=== PATIENT | male | born 1985 | race Caucasian/White ===

== ENCOUNTER 2017-03-27 07:13 | Emergency (ER) | payer SELFPAY ==
[~2017-03-27] VITALS: Ht 162.6 cm; Wt 100.0 kg
[2017-03-27 07:14] VITALS: BP 140/88; PULSE 97; RESP 18; TEMP 99.5; O2SAT 97
--- NOTE | 2017-03-27 07:43 | PD ---
HPI Chief Complaint: Flank/Kidney Pain Time Seen by Provider: 07:43 Travel History International Travel<30 days: No Contact w/Intl Traveler<30days: No Traveled to known affect area: No History of Present Illness HPI 31-year-old male came to the emergency room with history of left groin pain radiating to the left upper quadrant and to the back. Patient says this is been going on for past 4-5 days. 2 days ago the pain was excruciating when he was vomiting. He tried to tough it out as per him but since the pain is not getting better he decided to come here. He describes the pain as constant pressure with occasional intermittent sharp squeezing pain in his left testicular area. 5 days ago he noticed that his urine was dark ela color and he thought it was probably from dehydration and has been drinking a a lot of fluid and Gatorade. He says the urine looks clearer now. No history of fever or chills. Patient has history of testicular torsion years ago. No surgery was done. No past history of renal calculus. [facility] Past Medical History Narrative Medical List of his past medical, surgical, social and family history is reviewed from the nursing note. Medical History: Denies Significant Hx Diminished Hearing: No Immunizations Current: No Tetanus Vaccination: Unknown Influenza Vaccination: No Past Surgical History Surgical History: No Previous Surgery Social History Alcohol Use: Yes (occ) Tobacco Use: Yes (vape) Substance Use: Yes (marijuana - last use 2 days ago ) Allergies-Medications (Allergen,Severity, Reaction): Coded Allergies: No Known Allergies (Unverified , 03/27/17) Comments No known drug allergies. Reported Meds & Prescriptions Reported Meds & Active Scripts Active Hydrocodone-Acetaminophen 5-325 mg Tab 1 Tab PO Q6H PRN Flomax (Tamsulosin HCl) 0.4 Mg Cap 0.4 Mg PO HS Narrative Medication List of his home medications reviewed from the nursing note. Review of Systems Except as stated in HPI: all other systems reviewed are Neg Genitourinary: Positive: Hematuria, Pelvic Pain Physical Exam Narrative GENERAL: Awake, alert, mild distress SKIN: Focused skin assessment warm/dry. HEAD: Atraumatic. Normocephalic. EYES: Pupils equal and round. No scleral icterus. No injection or drainage. ENT: No nasal bleeding or discharge. Mucous membranes pink and moist. NECK: Trachea midline. No JVD. CARDIOVASCULAR: Regular rate and rhythm. No murmur appreciated. RESPIRATORY: No accessory muscle use. Clear to auscultation. Breath sounds equal bilaterally. GASTROINTESTINAL: Abdomen soft, non-tender, nondistended. Hepatic and splenic margins not palpable. MUSCULOSKELETAL: No obvious deformities. No clubbing. No cyanosis. No edema. : Circumcised, both testicles descended, cremasteric reflex present on the left and right. NEUROLOGICAL: Awake and alert. No obvious cranial nerve deficits. Motor grossly within normal limits. Normal speech. PSYCHIATRIC: Appropriate mood and affect; insight and judgment normal. Data Data Last Documented VS Vital Signs Date Time Temp Pulse Resp B/P (MAP) Pulse Ox O2 Delivery O2 Flow Rate FiO2 03/27/17 10:39 76 20 141/63 (89) 98 03/27/17 07:14 99.5 Room Air Orders Orders Complete Blood Count With Diff (03/27/17 08:03) Basic Metabolic Panel (Bmp) (03/27/17 08:03) Urinalysis - C+S If Indicated (03/27/17 08:03) Ct Abd/Pel W/O Iv Contrast (03/27/17 08:03) Ecg Monitoring (03/27/17 08:03) Iv Access Insert/Monitor (03/27/17 08:03) Ketorolac Inj (Toradol Inj) (03/27/17 08:15) Sodium Chloride 0.9% Flush (Ns Flush) (03/27/17 08:15) Sodium Chlor 0.9% 1000 Ml Inj (Ns 1000 M (03/27/17 08:03) Tamsulosin (Flomax) (03/27/17 09:15) Ed Discharge Order (03/27/17 10:02) Us Testicles W Doppler (03/27/17 ) Labs Laboratory Tests Test 03/27/17 07:30 03/27/17 09:00 White Blood Count 15.3 TH/MM3 Red Blood Count 4.77 MIL/MM3 Hemoglobin 14.1 GM/DL Hematocrit 41.3 % Mean Corpuscular Volume 86.7 FL Mean Corpuscular Hemoglobin 29.6 PG Mean Corpuscular Hemoglobin Concent 34.2 % Red Cell Distribution Width 13.9 % Platelet Count 275 TH/MM3 Mean Platelet Volume 8.3 FL Neutrophils (%) (Auto) 74.9 % Lymphocytes (%) (Auto) 15.2 % Monocytes (%) (Auto) 7.1 % Eosinophils (%) (Auto) 0.8 % Basophils (%) (Auto) 2.0 % Neutrophils # (Auto) 11.4 TH/MM3 Lymphocytes # (Auto) 2.3 TH/MM3 Monocytes # (Auto) 1.1 TH/MM3 Eosinophils # (Auto) 0.1 TH/MM3 Basophils # (Auto) 0.3 TH/MM3 CBC Comment AUTO DIFF Differential Comment AUTO DIFF CONFIRMED Blood Urea Nitrogen 15 MG/DL Creatinine 1.10 MG/DL Random Glucose 114 MG/DL Calcium Level 8.8 MG/DL Sodium Level 140 MEQ/L Potassium Level 3.7 MEQ/L Chloride Level 106 MEQ/L Carbon Dioxide Level 26.8 MEQ/L Anion Gap 7 MEQ/L Estimat Glomerular Filtration Rate 78 ML/MIN Urine Color YELLOW Urine Turbidity CLEAR Urine pH 5.5 Urine Specific [place] 1.011 Urine Protein TRACE mg/dL Urine Glucose (UA) NEG mg/dL Urine Ketones NEG mg/dL Urine Occult Blood LARGE Urine Nitrite NEG Urine Bilirubin NEG Urine Urobilinogen LESS THAN 2.0 MG/DL Urine Leukocyte Esterase NEG Urine RBC /hpf Urine WBC 3 /hpf Urine Bacteria OCC /hpf Urine Mucus FEW /lpf Microscopic Urinalysis Comment CULT NOT INDICATED MDM Medical Decision Making Medical Screen Exam Complete: Yes Emergency Medical Condition: Yes Medical Record Reviewed: Yes Differential Diagnosis Ureteral colic, testicular torsion Narrative Course 8:36 AM my suspicion is high for ureteral colic. I have ordered blood test and CAT scan. I've also ordered a testicular ultrasound since patient does have history of testicular torsion in the past. Awaiting for the test results. He' s been medicated for pain. 9:[address] scan is suggestive of a 3 mm stone in the left UVJ. I will have canceled the testicular ultrasound given this report but I was told that the ultrasound was already done by the time the report came back. Currently awaiting for the test result. Patient has some leukocytosis but rest of his blood test results are negative. I am comfortable discharging him home. He was given by mouth Flomax as well. I've discussed the test results with the patient and he understands the plan. Procedures EKG Prior to Arrival: No Diagnosis Primary Impression: Ureteral colic Additional Impression: Ureteral calculus Referrals: Kareem Avila MD 1 week Additional Instructions: Please return to the ER if condition worsens or any other new concerns. Otherwise follow-up with the urologist whose name and number been provided to you in this discharge instructions. Take the medication as per the prescription direction. Med/Other Pt SpecificInfo: Prescription(s) given Scripts Hydrocodone-Acetaminophen (Hydrocodone-Acetaminophen) 5-325 mg Tab 1 TAB PO Q6H Y for PAIN, #10 TAB 0 Refills Prov: Rama Bruce MD 03/27/17 Tamsulosin (Flomax) 0.4 Mg Cap 0.4 MG PO HS for Manage Prostate Problems, #10 CAP 0 Refills Prov: Rama Bruce MD 03/27/17 Disposition: 01 DISCHARGE HOME Condition: Stable Rama Bruce MD Mar 27, 2017 07:43
[2017-03-27] MEDS ORDERED: SODIUM CHLOR 0.9% 1000 ML INJ 1,000 ML IV ONE (08:03)
[2017-03-27] MEDS ORDERED: KETOROLAC TROMETHAMINE 30 MG/ML (IVP) VIAL IV PUSH ONE (08:15)
[2017-03-27] MEDS ORDERED: SODIUM CHLORIDE 0.9% FLUSH 10 ML FLUSH IVF PRN (08:15)
[2017-03-27 08:39] LABS: AUTOMATED NEUTROPHIL # 11.4 TH/MM3 (1.8-7.7); BASOPHIL # 0.3 TH/MM3 (0-0.2); EOSINOPHIL # 0.1 TH/MM3 (0-0.4); EOSINOPHIL % 0.8 % (0.0-4.0); HEMATOCRIT 41.3 % (39.0-51.0); HEMOGLOBIN 14.1 GM/DL (13.0-17.0); LYMPH % 15.2 % (9.0-44.0); LYMPHOCYTE # 2.3 TH/MM3 (1.0-4.8); MEAN CELL VOLUME 86.7 FL (80.0-100.0); MEAN CORPUSCULAR HEMOGLOBIN 29.6 PG (27.0-34.0); MEAN CORPUSCULAR HGB CONC 34.2 % (32.0-36.0); MEAN PLATELET VOLUME 8.3 FL (7.0-11.0); MONO % 7.1 % (0.0-8.0); MONOCYTE # 1.1 TH/MM3 (0-0.9); NEUT % 74.9 % (16.0-70.0); PLATELET COUNT 275 TH/MM3 (150-450); RED BLOOD COUNT 4.77 MIL/MM3 (4.50-5.90); RED CELL DISTRIBUTION WIDTH 13.9 % (11.6-17.2); WHITE BLOOD COUNT 15.3 TH/MM3 (4.0-11.0)
[2017-03-27 08:56] LABS: BICARBONATE 26.8 MEQ/L (21.0-32.0); CALCIUM 8.8 MG/DL (8.5-10.1); CREATININE 1.1 MG/DL (0.60-1.30)
--- NOTE | 2017-03-27 08:58 | RADRPT ---
EXAM DATE/TIME: 03/27/2017 08:19 [facility] COMPARISON: No previous studies available for comparison. INDICATIONS : Left groin and flank pain ORAL CONTRAST: No oral contrast ingested. RADIATION DOSE: 11.66 CTDIvol (mGy) MEDICAL HISTORY : None SURGICAL HISTORY : None. ENCOUNTER: Initial ACUITY: 1 day PAIN SCALE: 6/10 LOCATION: Left lower quadrant TECHNIQUE: Volumetric scanning of the abdomen and pelvis was performed. Using automated exposure control and ad justment of the mA and/or kV according to patient size, radiation dose was kept as low as reasonably achievable to obtain optimal diagnostic quality images. DICOM format image data is available electro nically for review and comparison. FINDINGS: LOWER LUNGS: The visualized lower lungs are clear. LIVER: Homogeneous density without lesion. There is no dilation of the biliary tree. No calcified gallston es. SPLEEN: Normal size without lesion. PANCREAS: Within normal limits. KIDNEYS: Normal in size and shape. There is no mass, stone, or hydronephrosis on the right. No hydronephrosis on the left.. Mild prominence of the left ureter with calculus at the UVJ measuring 3 mm. Slight inf lammatory changes. ADRENAL GLANDS: Within normal limits. VASCULAR: There is no aortic aneurysm. BOWEL/MESENTERY: The stomach, small bowel, and colon demonstrate no acute abnormality. There is no free intraperitone al air or fluid. ABDOMINAL WALL: Within normal limits. RETROPERITONEUM: There is no lymphadenopathy. BLADDER: No wall thickening or mass. REPRODUCTIVE: Within normal limits. INGUINAL: There is no lymphadenopathy or hernia. MUSCULOSKELETAL: Within normal limits for patient age. CONCLUSION: 1. Mild obstructive uropathy secondary to left UVJ calculus measuring 3 mm. Morgan Zaragoza MD on March 27, 2017 at 8:55 Board Certified Radiologist. This report was verified electronically.
[2017-03-27] MEDS ORDERED: TAMSULOSIN HCL 0.4 MG CAP PO ONE (09:15)
[2017-03-27 09:47] LABS: BACTERIA, URINE OCC /hpf; BILIRUBIN, URINE NEG (NEG); BLOOD, URINE LARGE (NEG); GLUCOSE,URINE NEG (NEG); KETONE, URINE NEG (NEG); MUCUS URINE FEW /lpf (OCC); NITRITE,URINE NEG (NEG); PH, URINE 5.5 (5.0-8.5); URINE COLOR YELLOW (YELLW/STRAW); URINE LEUKOCYTE ESTERASE NEG (NEG)
[2017-03-27] MEDS ORDERED: TAMS5CAP PO (09:54)
[2017-03-27] MEDS ORDERED: HYDR-3516 PO (09:54)
[2017-03-27 10:39] VITALS: BP 141/63
--- NOTE | 2017-03-28 08:46 | RADRPT ---
EXAM DATE/TIME: 03/27/2017 08:42 [facility] COMPARISON: No previous studies available for comparison. INDICATIONS : Left testicle pain. MEDICAL HISTORY : Testicular pain. Substance use. SURGICAL HISTORY : None. ENCOUNTER: Initial ACUITY: 2 days PAIN SCORE: 0/10 LOCATION: Bilateral scortum. MEASUREMENTS: RIGHT TESTICLE: 3.9 x 3.6 x 2.6 cm LEFT TESTICLE: 4.5 x 3.4 x 3.0 cm FINDINGS: RIGHT TESTICLE: Homogeneous echotexture without intra or extratesticular mass. Blood flow is symmetric and within no rmal limits. No varicocele. There is a small hydrocele. Epididymis is within normal limits. LEFT TESTICLE: Homogeneous echotexture without intra or extratesticular mass. Blood flow is symmetric and within no rmal limits. No varicocele. There is a small hydrocele. Epididymis is within normal limits. SCROTUM: Within normal limits. CONCLUSION: 1. The testicles are intrinsically normal and demonstrate symmetric blood flow. 2. Small bilateral hydroceles. Niranjan Sam MD on March 27, 2017 at 9:19 Board Certified Radiologist. This report was verified electronically.
== END 2017-03-27 10:39 | disposition home or self-care (01) ==
LOC: NEPE 07:13
DX: N20.1 Calculus of ureter (principal); N43.3 Hydrocele, unspecified; F12.90 Cannabis use, unspecified, uncomplicated; Z87.438 Personal history of other diseases of male genital organs; Z72.0 Tobacco use
CPT/HCPCS: 74176; 76870; 80048; 81001; 85025; 93975; 96361; 96374; 99285; J1885; J7030